=== PATIENT | male | born 1940 | race Caucasian/White ===

== ENCOUNTER → 2017-06-30 | Outpatient (CLI) | payer MEDICARE, BC ==
[~2017-06-30] MED LIST: ASC500 PO; ASPI-715 PO; ASPI81TA94 PO; CHOL200022 PO; FIN5 PO; FINA5TAB67 PO; MECL25TA9 PO; MULT1TAB64 PO; NAPR-1043 PO; PNEU0.5D3 IM; SIMV-42 PO; SIMV-49 PO
== END ==
LOC: LAB 08:07
PROVIDERS: ATTEND Urology
DX: Z12.5 Encounter for screening for malignant neoplasm of prostate (principal); N40.1 Benign prostatic hyperplasia with lower urinary tract symptoms
CPT/HCPCS: 36415; G0103; 84153

== ENCOUNTER → 2017-06-30 | Outpatient (CLI) | payer MEDICARE, BC ==
[2017-06-30 09:37] LABS: LDL CHOLESTEROL 78 mg/dl
== END ==
LOC: LAB 08:13
PROVIDERS: ATTEND Internal Medicine
DX: E78.00 Pure hypercholesterolemia, unspecified (principal)
CPT/HCPCS: 82040; 82247; 82310; 82374; 82435; 82465; 82565; 82947; 83718; 84075; 84132; 84155; 84295; 84450; 84460; 84478; 84520

== ENCOUNTER → 2017-10-02 | Outpatient (CLI) | payer MEDICARE, BC | LOC: US 03:09 | PROVIDERS: ATTEND Internal Medicine Cardiovascular Disease | DX: I35.9 Nonrheumatic aortic valve disorder, unspecified (principal) | CPT/HCPCS: 93306 ==

== ENCOUNTER → 2018-07-31 | Outpatient (CLI) | payer MEDICARE, BC ==
[~2018-07-31] MED LIST changes: +ASPI-1471 PO; +CHOL200018 PO; -CHOL200022 PO; +FLU180SY11 IM; +MELA1TAB15 PO; +TAMS0.4C25 PO
== END ==
LOC: LAB 09:01
PROVIDERS: ATTEND Urology
DX: R97.20 Elevated prostate specific antigen [PSA] (principal)
CPT/HCPCS: 36415; 84153

== ENCOUNTER → 2018-07-31 | Outpatient (CLI) | payer MEDICARE, BC ==
[2018-07-31 09:35] LABS: PLATELET COUNT, AUTOMATED 213 K/uL (150-450)
--- NOTE | 2018-07-31 10:05 | RADIOLOGY IMAGING REPORT ---
FAC[place] [facility] [place] NAME: Ken Cameron : 1940 MR: [id number] V: [id number] EXAM DATE: ORDERING PHYSICIAN: ESDRAS POSADA TECHNOLOGIST: Location: [facility] Patient: Ken Cameron : 1940 Visit/Account:[id number] Date of Sevice: 07/31/2018 CHEST PA LAT Indication: Chronic Cough Comparison: None. Findings: Lungs: Clear. Mediastinum/pulmonary vasculature: Heart size and pulmonary vasculature are normal. Bones/soft tissues: Internal cardiac defibrillator/pacemaker is in good position. IMPRESSION: Clear lungs. Report Dictated By: Gary Bautista at 07/31/2018 10:00 AM Report E-Signed By: Gary Bautista at 07/31/2018 10:01 AM [id number]
== END ==
LOC: RAD 09:00
PROVIDERS: ATTEND Family Medicine
DX: R05 Cough (principal)
CPT/HCPCS: 71046; 82040; 82247; 82310; 82374; 82435; 82565; 82947; 84075; 84132; 84155; 84295; 84450; 84460; 84520; 85025

== ENCOUNTER → 2018-11-12 | Outpatient (CLI) | payer MEDICARE, BC | LOC: LAB 15:10 | PROVIDERS: ATTEND Urology | DX: R97.20 Elevated prostate specific antigen [PSA] (principal) | CPT/HCPCS: 36415; 84153 ==